=== PATIENT | male | born 1990 | race Caucasian/White ===

== ENCOUNTER 2017-05-18 20:12 | Emergency (ER) | payer OTHER ==
[~2017-05-18] VITALS: Ht 175.3 cm; Wt 88.5 kg
[2017-05-18 20:29] VITALS: BP 128/78
[2017-05-18 21:14] LABS: ABSOLUTE BASOPHIL COUNT 0 /CUMM (0.0-0.2); ABSOLUTE EOSINOPHIL COUNT 0.2 /CUMM (0.0-0.7); ABSOLUTE GRANULOCYTE CT 4.4 /CUMM (1.4-6.5); ABSOLUTE LYMPH COUNT 3.1 /CUMM (1.2-3.4); ABSOLUTE MONOCYTE COUNT 0.6 /CUMM (0.10-0.60); BASOPHIL % 0.5 % (0.0-2.0); EOSINOPHIL % 1.9 % (0-5); GRANULOCYTE % 53.1 % (42.2-75.2); HEMATOCRIT 37.6 % (42-52); MEAN CORPUSCULAR HGB 30.3 PG (27.0-31.0); MEAN CORPUSCULAR HGB CONC 36.1 G/DL (33.0-37.0); MEAN CORPUSCULAR VOLUME 84.1 FL (80.0-94.0); MEAN PLATELET VOLUME 9.5 FL (7.4-10.4); PLATELET COUNT 261 /CUMM (130-400); RBC DISTRIBUTION WIDTH 13.1 % (11.5-14.5); RED BLOOD CELL CT 4.47 /CUMM (4.70-6.10); WHITE BLOOD CELL COUNT 8.3 /CUMM (4.8-10.8)
--- NOTE | 2017-05-18 21:47 | ED GENERAL ADULT ---
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 PT WAS CALLED TO ROOM # 229 WAS COLLECTING BELONGINGS AND VALUABLES WHEN HE REACHED IN POCKET AND POSSIBLY STUCK WITH UNCAPPED NEEDLES. PT HAD MULTIPLE LOOSE UNCAPPED NEEDLES IN THEIR POCKET. PT STUCK IN TIP OF LEFT MIDDLE FINGER. NO BLEEDING AT PRESENT. Triage Nurses Notes Reviewed? yes Onset: Abrupt Duration: minute(s): Timing: single episode today Injury Environment: work Severity: moderate HPI: 26-year-old male presents to emergency department complaining of suspected needle stick prior to arrival. 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 There is no bleeding at that time. Source patient consented to blood work testing for blood borne pathogens. Patient is otherwise healthy. (Noemy Scott) Past History Travel History Traveled to [place] past 21 day No Medical History Any Pertinent Medical History? see below for history Neurological: NONE EENT: NONE Cardiovascular: NONE Respiratory: NONE Gastrointestinal: NONE Hepatic: NONE Renal: NONE Musculoskeletal: NONE Psychiatric: NONE Endocrine: NONE Blood Disorders: HEPATITIS C Cancer(s): NONE Tetanus Vaccine: 08/12/13 Surgical History Surgical History: non-contributory Psychosocial History What is your primary language Malian Tobacco Use: Never used Family History Hx Contributory? No (Noemy Scott) Review of Systems Review of Systems Constitutional: Reports: no symptoms. EENTM: Reports: no symptoms. Respiratory: Reports: no symptoms. Cardiovascular: Reports: no symptoms. GI: Reports: no symptoms. Genitourinary: Reports: no symptoms. Musculoskeletal: Reports: no symptoms. Skin: Reports: see HPI. Neurological/Psychological: Reports: no symptoms. Hematologic/Endocrine: Reports: no symptoms. Immunologic/Allergic: Reports: see HPI. All Other Systems: Reviewed and Negative (Noemy Scott) Physical Exam Physical Exam General Appearance: well developed/nourished, no apparent distress, alert, awake Head: atraumatic, normal appearance Eyes: Bilateral: normal appearance. Ears, Nose, Throat: hearing grossly normal Neck: normal inspection, supple, full range of motion Respiratory: no respiratory distress Back: normal inspection, normal range of motion Extremities: normal inspection, normal range of motion, no evidence of needle stick detected, no active bleeding Neurologic/Psych: awake, alert, oriented x 3 Skin: intact, normal color, warm/dry Core Measures ACS in differential dx? No CVA/TIA Diagnosis: No Sepsis Present: No Sepsis Focused Exam Completed? No (Delaney MARTINEZ,Noemy Felton) Progress Differential Diagnoses I considered the following diagnoses in my evaluation of the patient: [ Accidental needlestick, exposure to blood-borne pathogens, work-related injury] Plan of Care: Orders Procedure Date/time Status HIV EXPOSURE/NEEDLESTICK 05/18 2025 Active HEPT C ANTIBODY 05/18 2025 Active HEPT B SURFACE ANTIBODY 05/18 2025 Active GAMMA GLUTAMYL TRANSFERASE 05/18 2025 Active COMPREHENSIVE METABOLIC PANEL 05/18 2025 Active CBC WITHOUT DIFFERENTIAL 05/18 2025 Complete TRNSFRASE ASPART AMINO 05/18 2025 Active TRNSFRAS ALANINE AMINO 05/18 2025 Active Laboratory Tests 05/18/172035: Anion Gap 13, Estimated GFR > 60, BUN/Creatinine Ratio 20.0, Glucose 119 H, Calcium 9.3, Total Bilirubin 0.3, GGT 12 L, AST 34, ALT 48, Alkaline Phosphatase 64, Total Protein 7.2, Albumin 4.5, Globulin 2.7, Albumin/Globulin Ratio 1.7, CBC w Diff NO MAN DIFF REQ, RBC 4.47 L, MCV 84.1, MCH 30.3, MCHC 36.1, RDW 13.1, MPV 9.5, Gran % 53.1, Lymphocytes % 37.6, Monocytes % 6.9, Eosinophils % 1.9, Basophils % 0.5, Absolute Granulocytes 4.4, Absolute Lymphocytes 3.1, Absolute Monocytes 0.6, Absolute Eosinophils 0.2, Absolute Basophils 0, Hep Bs Antibody Pending, Hepatitis C Antibody Pending, HIV 1&2 Antibody Pending The source patient's blood work results are negative for HIV/Hepatitis. These findings were discussed with the patient. Patient elects to refrain from prophylactic antiviral therapy at this time. Patient will follow-up with occupational medicine. The patient was discussed with Dr. Phan who agrees with this plan. Initial ED EKG: none (Noemy Scott) Departure Departure Disposition: HOME OR SELF CARE Condition: Stable Clinical Impression Primary Impression: Needle stick injury of finger Referrals: Pako DE LA ROSA,Elias Gonzales (PCP/Family) Additional Instructions: Follow-up with occupational medicine as discussed. Return with any worsening symptoms or concerns. Please note that there might be incidental findings in your evaluation that are unrelated to the current emergency department visit. Please notify your primary care doctor about this emergency department visit in order to obtain and review all of the testing performed so that these incidental findings can be monitored as needed. If you had an x-ray performed, please understand that some fractures may not be seen on the initial set of x-rays. If your symptoms persist you might need a repeat set of x-rays to check for such a fracture. If you had a laceration evaluated, please understand that foreign bodies such as glass or wood may not be visible to the naked eye or on plain x-rays. If the wound becomes red, swollen, increasingly more painful or if there is any drainage from the wound, please have it reevaluated by a physician for the possibility of a retained foreign body. If you're unable to follow up as outlined in the discharge instructions please return to the emergency department. Thank you for choosing the [facility] Emergency Department for your care. It was a pleasure to serve you today. Departure Forms: Customer Survey [employer] Employee Acc Report General Discharge Information Prescriptions: Current Visit Scripts No Known Home Medications (Noemy Scott) PA/PAINT LINE OPERATOR Co-Sign Statement Statement: ED Attending supervision documentation- [X] I saw and evaluated the patient. I have also reviewed all the pertinent lab results and diagnostic results. I agree with the findings and the plan of care as documented in the PA's/PAINT LINE OPERATOR's documentation. [] I have reviewed the ED Record and agree with the PA's/PAINT LINE OPERATOR's documentation. [] Additions or exceptions (if any) to the PAs/PAINT LINE OPERATOR's note and plan are summarized below: [] (Jaylan Phan DO) Critical Care Note Critical Care Note Critical Care Time: non-applicable (Noemy Scott)
== END 2017-05-18 21:59 ==
LOC: ERH 20:12
PROVIDERS: Physician Assistant Medical
DX: S61.233A Puncture wound without foreign body of left middle finger without damage to nail, initial encounter (principal); W46.1XXA Contact with contaminated hypodermic needle, initial encounter; Y93.89 Activity, other specified; Y92.239 Unspecified place in hospital as the place of occurrence of the external cause
CPT/HCPCS: 86803; 87389